=== PATIENT | female | born 1965 | race Caucasian/White ===

== ENCOUNTER 2021-12-30 07:24 | Outpatient (CLI) | payer OTHER, SELFPAY ==
[2021-12-30 09:18] LABS: Albumin* 4.8 g/dL (3.3-5.0); Chloride* 104 mmol/L (96-114)
[2021-12-30 09:19] LABS: Potassium* 5.2 mmol/L (3.6-5.1); Sodium* 142 mmol/L (135-149)
[2021-12-30 09:21] LABS: Alkaline Phosphatase* 62 U/L (40-150); Aspartate Amino Transferase* 25 U/L (12-35); Bilirubin Total* 0.6 mg/dL (0.1-1.5); Blood Urea Nitrogen* 21 mg/dL (7-30); Carbon Dioxide* 28 mmol/L (20-32); Cholesterol* 219 mg/dL (90-199); Creatinine* 0.8 mg/dL (0.5-1.5); Estimated Glomerular Filt Rate 88 ml/min; Glucose* 82 mg/dL (60-115); Total Protein* 7.1 g/dL (6.0-8.3); Triglycerides* 80 mg/dL (40-149)
[2021-12-30 09:22] LABS: Alanine Aminotransferase* 18 U/L (4-35); Calcium* 9.9 mg/dL (8.4-10.6); HDL Cholesterol* 76 mg/dL (>=50); LDL Cholesterol Calculated 127 mg/dL (<100)
== END 2021-12-30 07:25 | disposition home or self-care (01) ==
PROVIDERS: PCP Family Medicine; Visit Provider Family Medicine
DX: Z01.419 Encounter for gynecological examination (general) (routine) without abnormal findings (principal); E78.5 Hyperlipidemia, unspecified
CPT/HCPCS: 80053; 80061

== ENCOUNTER 2022-04-12 08:00 | Outpatient (CLI) | payer OTHER, SELFPAY ==
--- NOTE | 2022-04-12 08:15 | CRLHL7_ITS ---
For Patients: As a result of the Century Cures Act, medical imaging exams and procedure reports are released immediately into your electronic medical record. You may view this report before your referring provider. If you have questions, please contact your health care provider. BILATERAL SCREENING MAMMOGRAM WITH COMPUTER-AIDED DETECTION TECHNIQUE: CC and MLO views were obtained. These mammographic images have been obtained using full-field digital technique. These mammographic images were interpreted with the benefit of computer-aided detection. COMPARISON FILM: 03/03/21, 11/29/19, 09/25/18. FINDINGS: The breasts are heterogeneously dense, which may obscure small masses IMPRESSION: There is no radiographic evidence for malignancy. ASSESSMENT: BI-RADS Category 1: Negative RECOMMENDATION: Routine screening mammogram in 1 year. A lay language report of this examination will be provided to the patient. Mitchell Newell M.D. Diagnostic Radiologist [email or web address] Transcribed: 2:49 p.rhoda tan/Dictated by: Mitchell Newell MD @ 04/12/2022 12:47:00 PM (Electronically Signed)
== END 2022-04-12 08:01 | disposition home or self-care (01) ==
LOC: MAMMO 08:01
PROVIDERS: PCP Family Medicine; Visit Provider Family Medicine
DX: Z12.31 Encounter for screening mammogram for malignant neoplasm of breast (principal); R92.2 Inconclusive mammogram
CPT/HCPCS: 77067

== ENCOUNTER 2022-12-31 07:30 | Outpatient (CLI) | payer OTHER, SELFPAY | END 2022-12-31 07:31 | disposition home or self-care (01) | LOC: NFLDREF 01-03 17:23 | PROVIDERS: PCP Family Medicine; Referring Provider Family Medicine; Visit Provider Family Medicine | DX: Z13.6 Encounter for screening for cardiovascular disorders (principal); Z13.1 Encounter for screening for diabetes mellitus | CPT/HCPCS: 80061; 82947 ==

== ENCOUNTER 2024-01-03 07:29 | Outpatient (CLI) | payer OTHER, SELFPAY ==
--- OUTSIDE RECORDS SUMMARY | 2024-01-04 11:22 | XMS_ITS | Clinical Summary ---
Author Organization [facility] Address [place], [place] [address] Care Team Providers [employer] Name Role Phone Fausto Eubanks MD Primary Care Provider [phone] Allergies Active Allergy Reactions Criticality Noted Date Comments Penicillins Rash 05/23/2012 Medications No known medications Active Problems No known active problems Social History Tobacco Use Types Packs/Day Years Used Date Smoking Tobacco: Never Smokeless Tobacco: Never Tobacco Cessation:Counseling Given: Yes Alcohol Use Standard Drinks/Week Comments Not Asked 0 (1 standard drink = 0.6 oz pur e alcohol) Social Connections Answer Date Recorded Frequency of Communication with Friends and Fami ly Not on file 03/03/2021 Financial Resource Strain Answer Date R ecorded Difficulty of Paying Living Expenses Not on file 03/03/2021 Difficulty of Paying Living Expenses Not on file 03/03/2021 Sex and Gender Information Value Date Recorded Sex Assigned at Not on file Gender Identity Not on file Sexual Orientation Not on file Obstetrics History Last Filed Vital Signs Vital Sign Reading Time Taken Comments Blood Pressure 106/72 05/01/2014 7:54 AM FUR FEEDER Pulse 69 05/01/2014 7:54 AM FUR FEEDER Temperature 36.9 ??C (98.4 ??F) 05/01/2014 7:54 AM CS T Respiratory Rate - - Oxygen Saturation 100% 05/01/2014 7:54 AM FUR FEEDER Inhaled Oxygen Concentration - - Weight 75.3 kg (166 lb) 05/01/2014 7:54 AM FUR FEEDER Height 166.9 cm (5' 5.71) 05/01/2014 7:54 AM CS T Body Mass Index 27.03 05/01/2014 7:54 AM FUR FEEDER Plan of Treatment Health Maintenance Due Date Last Done Comments Tdap 1978 Depression screening for age 12+ 1979 HIV for age 15-65 1982 BMI (ht and wt on same day) for age 18+ 1985 Hepatitis C screening for age 18-79 1985 Tetanus booster 1987 Colonoscopy through age 75 2012 Lipids for age 45-75 2012 Mammogram for age 45-75 2012 07/03/2010 Zoster (shingles) series for age 50+ (1 of 2) 2017 Pap test for age 21-65 12/24/2022 0, 12/25/2019, 02/10/2015, Additional history exists COVID-19 vaccine series (2023- season) 2023 Influenza for age 50-64 11/06/2023 Pneumococcal series for age 6-64 Aged Out No longer eligible based on patient's age to complete this topic Procedures Procedure Name Priority Date/Time Associated Diagnosis Comments ASSISTANT SALES MANAGER THIN PREP PAP SCREEN IMAGED Routine 12/25/2019 8:00 AM CDT XR MAMMO UNI DIAG FFDM LEFT (IA) Routine 07/03/2010 2:10 PM CDT Abnormal mammogram from Last 3 Months or Most Recently Relevant to Health Maintenance Results * ASSISTANT SALES MANAGER THIN PREP PAP SCREEN IMAGED (12/25/2019 8:00 AM CDT) Case Report Gynecologic Cytology Report ? Case: [id number] ? Authorizing Provider: ??Garima Laguerre MD ??Collected: ? 12/25/2019 0800 ? Ordering Location: ? [facility] ?Received: ?12/26/2019 0936 ? First Screen: ?Som Garner ? Specimen: ?ASSISTANT SALES MANAGER ThinPrep Vial Screening, Cervical/Vaginal ? 12/31/2019 9:50 AM CDT [facility] INTERPRETATION/ RESULT NEGATIVE FOR INTRAEPITHELIAL LESION OR MALIGNANCY (NIL) (none) 12/31/2019 9:50 AM [facility] IMEN ADEQUACY Satisfactory for evaluation No endocervical component seen 12/31/2019 9:50 AM [facility] HPV REQUEST HPV and PAP 12/31/2019 9:50 AM [facility] Additional Information 12/31/2019 9:50 AM [facility] Comment: Interpreted at [facility] - [address], [place] [address] Automated Review Successful 12/31/2019 9:50 AM [facility] Comment:Specimen processed s uccessfully by automated bisque kiln placer device, Thin[employer] Imaging System[employer] ANCILLARY TESTING ASSISTANT SALES MANAGER HPV Ordered, Please see separate report 12/31/2019 9:50 AM [facility] Note The pap test is a screening technique, not a diagnostic procedure. It is used primarily to screen for squamous cancers and precursor lesions. Published studies have shown that it is subject to both false negative and false positive results. The pap test should not be used as the sole means to diagnose or exclude pre-malignant and malignant lesions. 12/31/2019 9:50 AM CDT [facility] Other (Cervical/Vagina l) 12/25/2019 8:00 AM CDT 12/26/2019 9:36 AM CDT Garima Laguerre MD PATHOLOGY/[facility] [address] [place] [address], [place] * XR MAMMO UNI DIAG FFDM LEFT (07/03/2010 2:10 PM CDT) Anatomical Region Laterality Modality BREASTS, Breast Left Left Mammography Narrative 07/06/2010 9:25 AM CDT LEFT BREAST DIGITAL DIAGNOSTIC MAMMOGRAM WITH ADDITIONAL VIEWS: ??07/03/2010 CLINICAL HISTORY: ??45-year-old woman with no family history of breast cancer.The patient has very dense breast tissue. ??A 1.5 cm rounded asymmetry was seen in the LEFT posterolateral breast on the CC view of a screening mammogram done at [facility] on 06/30/2010. ??She has been recalled for further evaluation. FINDINGS: ??CC and MLO views as well as a spot view of the posterolateral breast in the CC view have been obtained using digital technique. The 1.5 cm nodular asymmetry seen in the posterolateral breast on the CC view of the recent screening mammogram does not persist. It likely represented superimposition of normal breast tissue. No suspicious findings are seen in either breast. Recommend annual screening mammograms. ACR 1 Negative [facility] will provide a results postcard to the patient at the time of the appointment or through the mail. Ena Stevens M.D. Breast Radiologist [facility] DLD/sr ??1947 Procedure Note Ena Stevens MD - 07/06/2010 LEFT BREAST DIGITAL DIAGNOSTIC MAMMOGRAM WITH ADDITIONAL VIEWS: 07/03/2010 CLINICAL HISTORY: 45-year-old woman with no family history of breastcancer.The patient has very dense breast tissue. A 1.5 cm roundedasymmetry was seen in the LEFT posterolateral breast on the CC view of ascreening mammogram done at [facility] on 06/30/2010. She hasbeen recalled for further evaluation. FINDINGS: CC and MLO views as well as a spot view of the posterolateralbreast in the CC view have been obtained using digital technique. The 1.5cm nodular asymmetry seen in the posterolateral breast on the CC view ofthe recent screening mammogram does not persist. It likely representedsuperimposition of normal breast tissue. No suspicious findings are seenin either breast. Recommend annual screening mammograms. ACR 1 Negative [facility] will provide a results postcard to the patient atthe time of the appointment or through the mail. Ena Stevens M.D. Breast Radiologist [facility] [employer] DLD/sr 1946 Fausto Eubanks MD MAMMO from Last 3 Months or Most Recently Relevant to Health Maintenance [employer] Executive [employer] Relationship Specialty Start Date End Date Fausto Eubanks MD PCP - General Family Practice 07/02/10
== END 2024-01-03 07:30 | disposition home or self-care (01) ==
LOC: NFLDREF 01-04 11:19
PROVIDERS: PCP Family Medicine; Referring Provider Family Medicine; Visit Provider Family Medicine
DX: E78.5 Hyperlipidemia, unspecified (principal); R53.83 Other fatigue; Z13.1 Encounter for screening for diabetes mellitus
CPT/HCPCS: 80053; 80061

== ENCOUNTER 2024-04-03 08:06 | Outpatient (CLI) | payer OTHER, SELFPAY | END 2024-04-03 08:07 | disposition home or self-care (01) | LOC: MAMMO 08:07 | PROVIDERS: PCP Family Medicine; Visit Provider Family Medicine | DX: Z12.31 Encounter for screening mammogram for malignant neoplasm of breast (principal) | CPT/HCPCS: 77063; 77067 ==

== ENCOUNTER 2025-01-07 07:32 | Outpatient (CLI) | payer OTHER, SELFPAY | END 2025-01-07 07:33 | disposition home or self-care (01) | LOC: NFLDREF 01-17 02:40 | PROVIDERS: PCP Family Medicine; Referring Provider Family Medicine; Visit Provider Family Medicine | DX: E78.5 Hyperlipidemia, unspecified (principal); K59.00 Constipation, unspecified; R53.83 Other fatigue | CPT/HCPCS: 80061; 82947 ==

== ENCOUNTER 2025-01-09 07:48 | Outpatient (CLI) | payer OTHER, SELFPAY ==
[2025-01-11 06:14] LABS: HPV Source Cervical/Vag
[2025-01-14 08:16] LABS: Pap Test Digital Imaging Done
== END 2025-01-09 07:49 | disposition home or self-care (01) ==
PROVIDERS: PCP Family Medicine; Visit Provider Family Medicine
DX: Z12.4 Encounter for screening for malignant neoplasm of cervix (principal)
CPT/HCPCS: 87624; 87625; 88141; 88142; 88175